=== PATIENT | female | born 1980 | race Two or more races ===

== ENCOUNTER 2019-12-31 05:17 | Emergency (ER) | payer OTHER ==
[~2019-12-31] VITALS: Ht 165.1 cm; Wt 61.2 kg
[2019-12-31] MEDS ORDERED: CYMBALTA20 MG (05:26)
== END 2020-01-01 03:00 | disposition left against medical advice (07) ==
LOC: ER 05:17
DX: R45.851 Suicidal ideations (principal); F41.8 Other specified anxiety disorders; Z03.818 Encounter for observation for suspected exposure to other biological agents ruled out